=== PATIENT | female | born 1970 | race Native Hawaiian/Other Pacific Islander ===

== ENCOUNTER 2016-09-12 15:02 | Outpatient (CLI) | payer OTHER | END 2016-09-12 20:52 | disposition home or self-care (01) | LOC: RAD 15:02 | DX: J20.8 Acute bronchitis due to other specified organisms (principal) ==

== ENCOUNTER 2020-10-09 12:38 | Outpatient (CLI) | payer BC | END 2020-10-09 21:07 | disposition home or self-care (01) | LOC: RAD 12:38 | PROVIDERS: ATTEND Nurse Practitioner | DX: R05 Cough (principal) ==